=== PATIENT | male | born 1985 | race Caucasian/White ===

== ENCOUNTER 2022-04-06 13:14 | Emergency (ER) | payer OTHER, SELFPAY ==
[2022-04-06 13:28] VITALS: BP 135/91; BP 137/87; PULSE 81; PULSE 85; RESP 17; TEMP 37.2; O2SAT 100; O2SAT 97; BMI 28.7
[2022-04-06 14:03] VITALS: BP 137/87; PULSE 81; RESP 17; TEMP 37.2; O2SAT 97
--- NOTE | 2022-04-06 14:03 | ED.PSYCH ---
HPI - Psych General Chief Complaint: Psychiatric Symptoms <Vanessa SebastianASHLEE - Last Filed: 04/06/22 18:27> Stated Complaint: SI COMMENTS TO GF,[employer] W/SERVICE DOG,PER EMS <Vanessa Sebastian [employer] GL[employer] TECHNICIAN - Last Filed: 04/06/22 18:27> Time Seen by Provider: 04/06/22 13:47 <Vanessa SebastianASHLEE - Last Filed: 04/06/22 18:27> Source: patient <Vanessa Sebastian ASHLEE - Last Filed: 04/06/22 18:27> Mode of arrival: EMS <Vanessa Sebastian ASHLEE - Last Filed: 04/06/22 18:27> Limitations: no limitations <Vanessa Sebastian ASHLEE - Last Filed: 04/06/22 18:27> History of Present Illness HPI Narrative: Patient presents to the emergency department via EMS on a sections 12 from police. Patient reportedly made comments of suicidal ideations, stating that he was going to Blow his brains out. He presents agitated, with his service dog present. Initially not wanting to cooperate with standardized procedures including changeover into hospital attire and securing belongings. After talking with patient he is agreeable to this process. He reports that he has had 8 suicide attempts in the past, provides a vague history in regards to them. Uncertain whether any prior attempts or plans included guns, uncertain whether patient has access to guns. Denies homicidal ideations. He does report a history of PTSD secondary to service. <Vanessa SebastianASHLEE - Last Filed: 04/06/22 18:27> Related Data Allergies/Adverse Reactions: Allergies Allergy/AdvReac Type Severity Reaction Status Date / Time Iodinated Contrast Media Allergy Unknown UNKNOWN Unverified 04/25/20 15:36 [IV Dye, Iodine Containing Contrast ] <Vanessa SebastianASHLEE - Last Filed: 04/06/22 18:27> Review of Systems Review of Systems: Constitutional : No Fever, No Chills ENT/Mouth : No Ear Pain, No Nasal Congestion, No sore throat Eyes: No Eye Pain, No Swelling, No Redness Cardiovascular : No Chest Pain, No SOB Respiratory : No Cough, No Sputum, No Dyspnea Gastrointestinal : No Nausea, No Vomiting, No Diarrhea, No Hematochezia, No Melena Genitourinary : No Dysuria, No Urinary Frequency, No Hematuria Musculoskeletal : No Myalgias Skin : No Skin Lesions, No rash Neuro : No Weakness, No Numbness, No Paresthesias, No Dizziness, No Headache Psych : positive Anxiety, positive Depression, positive SI/HI Heme/Lymph: No Lymphadenopathy Endocrine : No Polyuria, No Polydipsia <Vanessa Sebastian CNP - Last Filed: 04/06/22 18:27> Yes all other systems are reviewed and are negative <Vanessa Sebastian CNP - Last Filed: 04/06/22 18:27> [facility] Past Medical History Attestation statement: The following information was validated with the patient. <Vanessa Sebastian CNP - Last Filed: 04/06/22 18:27> Source: old records reviewed <Vanessa Sebastian CNP - Last Filed: 04/06/22 18:27> Medical History: Medical History PTSD (post-traumatic stress disorder) <Vanessa Sebastian CNP - Last Filed: 04/06/22 18:27> Social History Social History: Social History Advance Directives: No Advance Directives Information Provided: No Guardian: No <Vanessa Sebastian CNP - Last Filed: 04/06/22 18:27> Physical Exam Vital Signs: Vital Signs: Last Vital Signs Temp 98.9 F 04/06/22 14:03 Pulse 81 04/06/22 14:03 Resp 17 04/06/22 14:03 BP 137/87 04/06/22 14:03 Pulse Ox 97 04/06/22 14:03 O2 Del Method 04/06/22 14:03 BMI result Body Mass Index 28.7 <Vanessa Sebastian CNP - Last Filed: 04/06/22 18:27> Vital Signs: Last Vital Signs Temp 98.9 F 04/06/22 14:03 Pulse 81 04/06/22 14:03 Resp 17 04/06/22 14:03 BP 137/87 04/06/22 14:03 Pulse Ox 97 04/06/22 14:03 O2 Del Method 04/06/22 14:03 BMI result Body Mass Index 28.7 <Tommie Liang MD - Last Filed: 04/06/22 21:46> Appearance: Alert.?Oriented to person, place and time. No acute distress. Eyes: Pupils equal, round and reactive to light.? ENT: Pharynx normal.?? Neck: Normal inspection.? Neck supple.?? CVS: Heart sounds normal. Normal heart rate and rhythm.? Pulses normal.?? Respiratory: No respiratory distress.? Lung sounds clear to auscultation bilaterally?? Abdomen: Soft and non-tender. Skin: Skin warm and dry.? Normal skin color.? Extremities: No lower extremity edema. Neuro: Moves all extremities spontaneously. Sensation intact bilaterally. CN II-XII intact. No focal neuro deficits. Ambulates with normal steady gait. <Vanessa Sebastian CNP - Last Filed: 04/06/22 18:27> Course Course Course Narrative: Patient is a 36-year-old male with a past medical history of PTSD who presents to the emergency department today via EMS on a Section 12 from police department after making suicidal ideations, with a specific plan. Patient initially agitated and uncooperative, was able to be verbally de-escalated, and agreeable to transition to hospital attire and securing of personal belongings. He is overall well-appearing. Vital signs are stable. Has no acute physical complaints. Will obtain basic labs, obtain drug of abuse screen and ethanol levels, and referred to [facility] for further evaluation and safe disposition assessment, Is unclear whether patient has any access to firearms in the home as he has not been to answer this question. <Vanessa Sebastian CNP - Last Filed: 04/06/22 18:27> Reevaluation(s) Reevaluation #1: Labs overall unremarkable. Alcohol negative, urine toxicology positive for opiates and marijuana. CARE team clinician Shayla met with patient and his girlfriend. Patient resides at home with the girlfriend. She states that he makes these statements Often, but she contacted police today, reporting how many times can she let him make any statements without having any action upon it. She endorses no concerned that he would actually act upon this. There are firearms in the home, however they are both it locked boxes, which girlfriend reports that she will keep the keys for. Both girlfriend and the patient deny any presence of ammunition in the home. Patient stating that he did not mean it when he said he would ?blow his brains out? he still reports that he stated this due to sadness. Clinician feels that patient would be safe for discharge with referral to partial program. Personal concerns about patient's access to firearms, bowel arms are still within the home, it is possible that he may take the keys from his significant other, and with a license to carry with has abscess approaches and remission. <Vanessa Sebastian CNP - Last Filed: 04/06/22 18:27> Time: 18:00 <Vanessa Sebastian CNP - Last Filed: 04/06/22 18:27> Reevaluation #2: Patient signed out to ED attending Dr. Epps, Pending consultation from Psychiatry for further evaluation and safe disposition planning. <Vanessa Sebastian CNP - Last Filed: 04/06/22 18:27> Time: 18:26 <Vanessa Sebastian CNP - Last Filed: 04/06/22 18:27> Time: 21:46 <Tommie Liang MD - Last Filed: 04/06/22 21:46> Additional Reevaluation(s): Patient has been evaluated by Behavioral Health. Please have gone to the patient's house and retrieved his guns. The patient has been deemed safe for discharge home by the behavioral health team. Patient is being discharged <Tommie Liang MD - Last Filed: 04/06/22 21:46> MDM - Psych Medical Records Attestation: I reviewed the patient's medical records. <Vanessa Sebastian CNP - Last Filed: 04/06/22 18:27> Lab Data Attestation: I reviewed the patient's lab results. <Vanessa Sebastian CNP - Last Filed: 04/06/22 18:27> Result diagrams: : 04/06/22 16:42 04/06/22 16:43 <Vanessa Sebastian CNP - Last Filed: 04/06/22 18:27> Labs: Lab Results 04/06/22 04/06/22 04/06/22 Range/Units 14:42 15:26 16:42 WBC 9.6 (4.8-10.8) X10*3/uL RBC 5.04 (4.60-5.80) X10*6/uL Hgb 16.5 (14.0-18.0) g/dl Hct 47.4 (42.0-52.0) % MCV 94.0 (80.0-98.0) fL MCH 32.7 (27.0-33.0) pg MCHC 34.8 (31.0-36.0) g/dl RDW 11.2 (11.0-16.0) % Plt Count 138 L (160-400) X10*3/uL MPV 10.8 (9.4-12.4) fL Immature Gran % (Auto) 0.3 (0.0-0.4) % Neut % (Auto) 74.5 H (45-73) % Lymph % (Auto) 21.0 (20-40) % [place] % (Auto) 3.4 (2-11) % Eos % (Auto) 0.5 (0-4) % Baso % (Auto) 0.3 (0-2) % Lymph # (Auto) 2.0 (1.2-4.9) X10*3/uL [place] # (Auto) 0.3 (0.1-1.2) X10*3/uL Eos # (Auto) 0.1 (0.0-0.4) X10*3/uL Baso # (Auto) 0.0 (0.0-0.2) X10*3/uL Abs Immat Gran (auto) 0.03 (0.00-0.03) X10*3/uL Absolute Neuts (auto) 7.2 (2.0-8.3) x10*3/uL Absolute Nucleated RBC 0.000 (0.0-0.012) X10*3/uL Nucleated RBC % (auto) 0.0 (0.0-0.2) /100WBC Sodium (135-145) mmol/L Potassium (3.3-5.1) mmol/L Chloride (96-108) mmol/L Carbon Dioxide (22-29) mmol/L Anion Gap (12-20) BUN (9-16) mg/dL Creatinine (0.5-1.4) mg/dL Estim Creat Clear Calc Estimated GFR Random Glucose (60-115) mg/dL Calcium (8.4-10.2) mg/dL Total Bilirubin (0.0-1.0) mg/dL AST (5-37) U/L ALT (0-40) U/L Alkaline Phosphatase (39-117) U/L Total Protein (6.5-8.0) g/dL Albumin (3.5-5.0) g/dL Urine Opiates Screen POSITIVE H (Not Detect) Urine Fentanyl Screen Not Detected (Not Detect) Ur Barbiturates Screen Not Detected (Not Detect) Ur Phencyclidine Scrn Not Detected (Not Detect) Ur Amphetamines Screen Not Detected (Not Detect) U Benzodiazepines Scrn Not Detected (Not Detect) Urine Cocaine Screen Not Detected (Not Detect) U Marijuana (THC) Screen POSITIVE H (Not Detect) Ethyl Alcohol mg/dL COVID-19 (LISA) Negative (Negative) COVID-19 Clin Com See Note 04/06/22 Range/Units 16:43 WBC (4.8-10.8) X10*3/uL RBC (4.60-5.80) X10*6/uL Hgb (14.0-18.0) g/dl Hct (42.0-52.0) % MCV (80.0-98.0) fL MCH (27.0-33.0) pg MCHC (31.0-36.0) g/dl RDW (11.0-16.0) % Plt Count (160-400) X10*3/uL MPV (9.4-12.4) fL Immature Gran % (Auto) (0.0-0.4) % Neut % (Auto) (45-73) % Lymph % (Auto) (20-40) % [place] % (Auto) (2-11) % Eos % (Auto) (0-4) % Baso % (Auto) (0-2) % Lymph # (Auto) (1.2-4.9) X10*3/uL [place] # (Auto) (0.1-1.2) X10*3/uL Eos # (Auto) (0.0-0.4) X10*3/uL Baso # (Auto) (0.0-0.2) X10*3/uL Abs Immat Gran (auto) (0.00-0.03) X10*3/uL Absolute Neuts (auto) (2.0-8.3) x10*3/uL Absolute Nucleated RBC (0.0-0.012) X10*3/uL Nucleated RBC % (auto) (0.0-0.2) /100WBC Sodium 143 (135-145) mmol/L Potassium 3.8 (3.3-5.1) mmol/L Chloride 105 (96-108) mmol/L Carbon Dioxide 26 (22-29) mmol/L Anion Gap 16 (12-20) BUN 11 (9-16) mg/dL Creatinine 1.04 (0.5-1.4) mg/dL Estim Creat Clear Calc 111.2 Estimated GFR > 60 Random Glucose 96 (60-115) mg/dL Calcium 10.2 (8.4-10.2) mg/dL Total Bilirubin 0.6 (0.0-1.0) mg/dL AST 20 (5-37) U/L ALT 18 (0-40) U/L Alkaline Phosphatase 79 (39-117) U/L Total Protein 8.1 H (6.5-8.0) g/dL Albumin 5.2 H (3.5-5.0) g/dL Urine Opiates Screen (Not Detect) Urine Fentanyl Screen (Not Detect) Ur Barbiturates Screen (Not Detect) Ur Phencyclidine Scrn (Not Detect) Ur Amphetamines Screen (Not Detect) U Benzodiazepines Scrn (Not Detect) Urine Cocaine Screen (Not Detect) U Marijuana (THC) Screen (Not Detect) Ethyl Alcohol < 10 mg/dL COVID-19 (LISA) (Negative) COVID-19 Clin Com <Vanessa Sebastian CNP - Last Filed: 04/06/22 18:27> Lab Results 04/06/22 04/06/22 04/06/22 Range/Units 14:42 15:26 16:42 WBC 9.6 (4.8-10.8) X10*3/uL RBC 5.04 (4.60-5.80) X10*6/uL Hgb 16.5 (14.0-18.0) g/dl Hct 47.4 (42.0-52.0) % MCV 94.0 (80.0-98.0) fL MCH 32.7 (27.0-33.0) pg MCHC 34.8 (31.0-36.0) g/dl RDW 11.2 (11.0-16.0) % Plt Count 138 L (160-400) X10*3/uL MPV 10.8 (9.4-12.4) fL Immature Gran % (Auto) 0.3 (0.0-0.4) % Neut % (Auto) 74.5 H (45-73) % Lymph % (Auto) 21.0 (20-40) % [place] % (Auto) 3.4 (2-11) % Eos % (Auto) 0.5 (0-4) % Baso % (Auto) 0.3 (0-2) % Lymph # (Auto) 2.0 (1.2-4.9) X10*3/uL [place] # (Auto) 0.3 (0.1-1.2) X10*3/uL Eos # (Auto) 0.1 (0.0-0.4) X10*3/uL Baso # (Auto) 0.0 (0.0-0.2) X10*3/uL Abs Immat Gran (auto) 0.03 (0.00-0.03) X10*3/uL Absolute Neuts (auto) 7.2 (2.0-8.3) x10*3/uL Absolute Nucleated RBC 0.000 (0.0-0.012) X10*3/uL Nucleated RBC % (auto) 0.0 (0.0-0.2) /100WBC Sodium (135-145) mmol/L Potassium (3.3-5.1) mmol/L Chloride (96-108) mmol/L Carbon Dioxide (22-29) mmol/L Anion Gap (12-20) BUN (9-16) mg/dL Creatinine (0.5-1.4) mg/dL Estim Creat Clear Calc Estimated GFR Random Glucose (60-115) mg/dL Calcium (8.4-10.2) mg/dL Total Bilirubin (0.0-1.0) mg/dL AST (5-37) U/L ALT (0-40) U/L Alkaline Phosphatase (39-117) U/L Total Protein (6.5-8.0) g/dL Albumin (3.5-5.0) g/dL Urine Opiates Screen POSITIVE H (Not Detect) Urine Fentanyl Screen Not Detected (Not Detect) Ur Barbiturates Screen Not Detected (Not Detect) Ur Phencyclidine Scrn Not Detected (Not Detect) Ur Amphetamines Screen Not Detected (Not Detect) U Benzodiazepines Scrn Not Detected (Not Detect) Urine Cocaine Screen Not Detected (Not Detect) U Marijuana (THC) Screen POSITIVE H (Not Detect) Ethyl Alcohol mg/dL COVID-19 (LISA) Negative (Negative) COVID-19 Clin Com See Note 04/06/22 Range/Units 16:43 WBC (4.8-10.8) X10*3/uL RBC (4.60-5.80) X10*6/uL Hgb (14.0-18.0) g/dl Hct (42.0-52.0) % MCV (80.0-98.0) fL MCH (27.0-33.0) pg MCHC (31.0-36.0) g/dl RDW (11.0-16.0) % Plt Count (160-400) X10*3/uL MPV (9.4-12.4) fL Immature Gran % (Auto) (0.0-0.4) % Neut % (Auto) (45-73) % Lymph % (Auto) (20-40) % [place] % (Auto) (2-11) % Eos % (Auto) (0-4) % Baso % (Auto) (0-2) % Lymph # (Auto) (1.2-4.9) X10*3/uL [place] # (Auto) (0.1-1.2) X10*3/uL Eos # (Auto) (0.0-0.4) X10*3/uL Baso # (Auto) (0.0-0.2) X10*3/uL Abs Immat Gran (auto) (0.00-0.03) X10*3/uL Absolute Neuts (auto) (2.0-8.3) x10*3/uL Absolute Nucleated RBC (0.0-0.012) X10*3/uL Nucleated RBC % (auto) (0.0-0.2) /100WBC Sodium 143 (135-145) mmol/L Potassium 3.8 (3.3-5.1) mmol/L Chloride 105 (96-108) mmol/L Carbon Dioxide 26 (22-29) mmol/L Anion Gap 16 (12-20) BUN 11 (9-16) mg/dL Creatinine 1.04 (0.5-1.4) mg/dL Estim Creat Clear Calc 111.2 Estimated GFR > 60 Random Glucose 96 (60-115) mg/dL Calcium 10.2 (8.4-10.2) mg/dL Total Bilirubin 0.6 (0.0-1.0) mg/dL AST 20 (5-37) U/L ALT 18 (0-40) U/L Alkaline Phosphatase 79 (39-117) U/L Total Protein 8.1 H (6.5-8.0) g/dL Albumin 5.2 H (3.5-5.0) g/dL Urine Opiates Screen (Not Detect) Urine Fentanyl Screen (Not Detect) Ur Barbiturates Screen (Not Detect) Ur Phencyclidine Scrn (Not Detect) Ur Amphetamines Screen (Not Detect) U Benzodiazepines Scrn (Not Detect) Urine Cocaine Screen (Not Detect) U Marijuana (THC) Screen (Not Detect) Ethyl Alcohol < 10 mg/dL COVID-19 (LISA) (Negative) COVID-19 Clin Com <Tommei Liang MD - Last Filed: 04/06/22 21:46> Discharge Plan Discharge Clinical Impression: Suicidal ideation, Post-traumatic stress disorder <Vanessa Sebastian CNP - Last Filed: 04/06/22 18:27> Patient Disposition: Home, Self-Care <Vanessa Sebastian CNP - Last Filed: 04/06/22 18:27> Instructions: Post Traumatic Stress Disorder (ED), Suicide Prevention (ED) <Vanessa Sebastian CNP - Last Filed: 04/06/22 18:27> Additional Instructions: Follow-up as advised by the crisis team. Continue medications as per routine. Return for any new or worsened symptoms <Vanessa Sebastian, ASHLEE - Last Filed: 04/06/22 18:27>
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
[2022-04-06 15:08] LABS: Amphetamine Screen Urine Not Detected (Not Detect); Barbiturates, Urine Not Detected (Not Detect); Benzodiazepines Screen Urine Not Detected (Not Detect); Cannabinoid Screen Urine POSITIVE (Not Detect); Cocaine Screen Urine Not Detected (Not Detect); Fentanyl, urine Not Detected (Not Detect); Opiate Screen Urine POSITIVE (Not Detect); Phencyclidine Screen Urine Not Detected (Not Detect)
[2022-04-06 15:54] LABS: COVID-19 Test Negative (Negative)
[2022-04-06 16:52] LABS: Mean Platelet Volume 10.8 fL (9.4-12.4); Monocytes Percent Auto 3.4 % (2-11); PLT CLUMP 1; SCAN SMEAR FLAG 1
[2022-04-06 16:54] LABS: Basophils Percent Auto 0.3 % (0-2); Eosinophils Absolute Auto 0.1 X10*3/uL (0.0-0.4); Eosinophils Percent Auto 0.5 % (0-4); Hematocrit 47.4 % (42.0-52.0); Hemoglobin 16.5 g/dl (14.0-18.0); Imm Gran Abs Auto 0.03 X10*3/uL (0.00-0.03); Imm Gran Pct Auto 0.3 % (0.0-0.4); Mean Corpuscular HGB Conc 34.8 g/dl (31.0-36.0); Mean Corpuscular Hemoglobin 32.7 pg (27.0-33.0); Monocytes Absolute Auto 0.3 X10*3/uL (0.1-1.2); Neutrophils Absolute Auto 7.2 x10*3/uL (2.0-8.3); Neutrophils Percent Auto 74.5 % (45-73); Red Blood Count 5.04 X10*6/uL (4.60-5.80); Red Cell Distribution Width 11.2 % (11.0-16.0)
[2022-04-06 17:12] LABS: Alanine Aminotransferase 18 U/L (0-40); Albumin Level 5.2 g/dL (3.5-5.0); Alkaline Phosphatase 79 U/L (39-117); Anion Gap 16 (12-20); Aspartate Amino Transferase 20 U/L (5-37); Bilirubin Total 0.6 mg/dL (0.0-1.0); Blood Urea Nitrogen 11 mg/dL (9-16); Calcium 10.2 mg/dL (8.4-10.2); Carbon Dioxide 26 mmol/L (22-29); Chloride 105 mmol/L (96-108); Creatinine Clr Calc Pharmacy 111.2; Estimated Glomerular Filt Rate > 60; Ethanol < 10 mg/dL; Glucose Random 96 mg/dL (60-115); Potassium 3.8 mmol/L (3.3-5.1); Sodium 143 mmol/L (135-145); Total Protein 8.1 g/dL (6.5-8.0)
[2022-04-06 17:15] LABS: MANUAL DIFF FLAG NO; Platelet Count 138 X10*3/uL (160-400); White Blood Count 9.6 X10*3/uL (4.8-10.8)
--- NOTE | 2022-04-06 21:30 | MHC.CARE ---
CARE team evaluated pt. Jackson SZYMANSKI was contacted re: removing firearms from the pt's home. translator/interpreter John met with pt. Plan is for discharge home with referral to PHP.
--- NOTE | 2022-04-06 21:50 | MHC.CARE ---
[employer] confirmed removal of two firearms from the home.
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
--- NOTE | 2022-04-07 14:32 | MHC.CARE ---
CARE Team contacted pt as a follow up to his visit yesterday.? Pt was abrupt on the phone and appeared to be disinterested in carrying on a conversation with CARE Team.? CARE Team was advised that the call was interrupting a meal time.? CARE Team offered to call at a time that was better for pt, pt declined stating that he did not want a phone call at a later time, nor did he want a phone call at present.? Pt was advised that he could return should he experience any sx or a worsening of any sx he may already have.? Pt did deny SI, HI and self-harm urges.
== END 2022-04-06 21:56 | disposition home or self-care (01) ==
PROVIDERS: Nurse Practitioner Family; Emergency Provider Emergency Medicine
DX: R45.851 Suicidal ideations (principal); F43.10 Post-traumatic stress disorder, unspecified; R45.1 Restlessness and agitation; Z20.822 Contact with and (suspected) exposure to COVID-19; F41.9 Anxiety disorder, unspecified; F32.A Depression, unspecified; F60.3 Borderline personality disorder; F12.90 Cannabis use, unspecified, uncomplicated; Z91.51 Personal history of suicidal behavior; Z87.820 Personal history of traumatic brain injury
CPT/HCPCS: 36415; 80053; 80307; 82077; 85025; 87635; 99284; 99285